=== PATIENT | female | born 1960 | race Caucasian/White ===

== ENCOUNTER 2019-04-15 20:17 | Observation (INO) ==
--- NOTE | 2019-04-15 20:39 | ERNOTE ---
Chest Pain/Cardiac HPI Date of Service: 04/15/19 Chief Complaint: Chest Pain Time Seen by Provider: 04/15/19 20:31 Source: patient Exam Limitations: no limitations Immunizations: IMMUNIZATION HX Immunizations Up to Date Yes History of Influenza Vaccine No Hx Pneumococcal Vaccination No Allergies/Adverse Reactions: Allergies No Known Allergies Allergy (Unverified 04/15/19 20:33) Home Medications: HOME MEDICATIONS NK 04/15/19 [Last Taken Unknown] Pain Score #1 Pain Score: 10 Narrative: 58-year-old female complaining of generalized chest pain began 2 days ago she had a very stressful day she was taking care of 1 7 grandchildren and another set was taken away from her son and they had tried to get them back with no success pain began yesterday it hurts to breathe hurts to move it it goes across the whole chest but particularly more so on the right side she has no heart history but she has a history of severe anxiety and COPD she still smokes half a pack to pack a day prior to these last few days she has had Date (Duration): 04/15/19 Time (Timing): 20:37 Timing: constant Severity/Quality: severe Location: central Chest Pain Radiation: no radiation Activities at Onset: emotional stress Nitro Today/Relief: no nitro taken today Aspirin Treatment Today: no aspirin today Associated Symptoms: Present: denies symptoms Prior Chest Pain/Cardiac Workup: Reports: no prior cardiac workup Review of Systems - Review of Systems Constitutional: Present: no symptoms reported EYE: Present: no symptoms reported ENT: Present: no symptoms reported Respiratory: Present: no symptoms reported Cardiology: Present: no symptoms reported, chest pain Gastrointestinal/Abdominal: Present: no symptoms reported Genitourinary: Present: no symptoms reported Musculoskeletal: Present: no symptoms reported Skin: Present: no symptoms reported Neurological: Present: no symptoms reported Endocrine: Present: no symptoms reported Hematologic/Lymphatic: Present: no symptoms reported Psych: Present: no symptoms reported All Other Systems: All systems neg except as marked Medical History (Updated 04/15/19 @ 22:37 by Ashu Grant MD) Anxiety Surgical History: Surgical History (Updated 04/15/19 @ 20:31 by Elizabeth Devlin RN) No pertinent past surgical history Family History: Family History (Updated 04/15/19 @ 20:31 by Elizabeth Devlin RN) Mother Lung cancer Father Prostate cancer Social History: (Last Updated 04/15/19 @ 20:33 by Elizabeth Devlin RN) Social History: lives independently: No household members: children caregiver/support person: Yes current occupational status: employed current occupational exposures/hazards: Yes 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 Highest education level completed: 12th grade, no diploma Tobacco: Smoking Status: Current every day smoker Smoking cigarettes per day: 10 Years smoked: 44 Alcohol: alcohol intake: never Substance Use: substance use type: does not use Pets: pets and animals: cat(s), dog(s) Exercise: Physical activity type: none Monique/Jain: special monique needs: No Physical Exam - Physical Exam General Appearance: Present: wd/wn, alert, moderate distress Head Exam: Present: normal inspection Eye Exam: Normal inspection: bilateral Ears, Nose, Throat: Present: normal ENT inspection Neck: Present: normal inspection Respiratory: Present: chest nontender, chest tenderness, respiratory distress, wheezing Cardiovascular/Chest: Present: regular rate, rhythm Peripheral Pulses: N=norm/S=strong/W=weak/B=bound/A=absent: Carotid (R): Normal, Carotid (L): Normal Gastrointestinal/Abdominal: Present: normal bowel sounds Back Exam: Present: normal inspection Extremity Exam: Present: normal inspection Neurological Exam: Present: alert, oriented Skin Exam: Present: normal color, warm/dry Lymphatic Exam: Present: no adenopathy Progress - Results and Orders Patient's Lab Results:: I have reviewed the patient's lab results. - Vital Signs Patient's Vital Signs:: I have reviewed the patient's vital signs. Vital Signs: Vital Signs 04/15/19 20:21 Temperature 37.1 C Pulse Rate 85 Respiratory Rate 16 Blood Pressure 107/63 O2 Sat by Pulse Oximetry 94 - EKG EKG #1 EKG: NSR, no ST T wave changes EKG read: Interp. by me EKG #2 EKG: premature ventricular contraction EKG read: Interp. by me EKG Comments: Heart rate 81 left atrial enlargement borderline ECG we have no priors to compare the patient with her initial EKG was just a sinus rhythm at 85 at times on monitor we can see her having runs of bigeminy her O2 sat is fine after the treatment she is feeling better breathing easier sats at 99% chest pain has gotten somewhat better her blood pressure remains slightly low low systolic 101 107 so on the little cautious about using nitroglycerin on her right now so the Toradol seemed to help a little bit and she seems to be more comfortable however she does show a white count of 21,000 and chest x-ray suspicious for right lower lobe infiltrate EKG #3 EKG: NSR, premature ventricular contraction EKG read: Interp. by me EKG Comments: EKG shows a heart rate is 79 sinus rhythm with frequent PVCs again 3B's of bigeminy possible right axis deviation left atrial enlargement no acute changes at the moment - X-Ray X-Ray #1 X-Ray: chest Interpretation: Interp. by me X-ray Comments: Right lower lobe infiltrate - Progress/Reassessment Chief Complaint: Chest Pain Progress:: Improved Plan - Plan Plan: Lab results are back white count is 21,000 troponin levels are normal everything else is within acceptable normal range considering the pain in the right side of the chest cough productive cough elevated white count feel we are dealing more with a pneumonia chest x-ray seems there is an infiltrate in the right lower lobe so we will be treating her as a has a pneumonia for the time being Dr. Saravanan Coe on-call physician accepted patient for admitting to telemetry Departure Clinical Impression: Pneumonia, Chest pain made worse by breathing, Asymptomatic PVCs - Departure Disposition: Short Term Hospital Inpatient Condition: Stable
[2019-04-15] MEDS ORDERED: NORMAL SALINE 1,000 ML IV ONE (20:40)
[2019-04-15] MEDS ORDERED: ASPIRIN 81 MG TAB.CHEW PO ONE (20:41)
[2019-04-15] MEDS ORDERED: ALBUTEROL SULFATE/IPRATROPIUM 3 ML NEBU IH ONE (20:42)
[2019-04-15] MEDS ORDERED: KETOROLAC TROMETHAMINE 30 MG/ML VIAL IV ONE ×2 (20:42→22:37)
[2019-04-15 20:57] LABS: Hematocrit 41.5 % (37.0-47.0); Hemoglobin 14.5 gm/dL (12.5-16.0); Mean Cell Volume 84.9 fl (78-100); Mean Corpuscular Hemoglobin 29.7 pg (27-31); Mean Corpuscular Hgb Conc 34.9 g/dl (32-36); Neutrophil # 17.7 K/mm3 (1.3-6.0); Neutrophil % 83.9 % (42-75.0); Platelet Count 191 K/mm3 (150-450); Red Blood Count 4.89 M/mm3 (4.2-5.4); Red Cell Distribution Width 13.6 % (11.5-14.0); White Blood Count 21.1 K/mm3 (4.0-10.5)
[2019-04-15 21:15] LABS: ALT 10 U/L (19-67); AST 24 U/L (0-48); Albumin * 3.3 gm/dl (3.4-5.0); Alkaline Phosphatase * 89 U/L (50-170); Anion Gap 15.5 mmol/L (6.8-13.8); BUN/Creatinine Ratio 17.2 (9.0-21.6); Bilirubin, Total 1.4 mg/dL (0.0-1.1); Blood Urea Nitrogen 11 mg/dL (3-23); Ca. Corrected For Albumin 8.3 mg/dL (8.4-10.2); Calcium * 8.1 mg/dL (7.9-10.9); Carbon Dioxide 24.2 mmol/L (24-32.6); Chloride 98 mmol/L (97-106); Glucose * 100 mg/dL (70-110); Potassium 3.7 mmol/L (3.4-4.6); Sodium 134 mmol/L (132-142); Total Protein 6.8 gm/dL (6.2-8.2); Troponin I Less than 0.017 ng/mL (0.00-0.10)
[2019-04-15] MEDS ORDERED: cefTRIAXone SODIUM 1,000 MG/100 ML BAG IV ONE (21:24)
[2019-04-15] MEDS ORDERED: MORPHINE SULFATE 4 MG/ML SYRG IV ONE (21:25)
[2019-04-15] MEDS ORDERED: ACETAMINOPHEN 325 MG TABLET PO PRN (22:37)
[2019-04-15] MEDS ORDERED: NORMAL SALINE 1,000 ML IV PRN (22:37)
[2019-04-15] MEDS ORDERED: AZITHROMYCIN 250 MG TABLET PO STA (22:37)
[2019-04-16] MEDS: ALBUTEROL SULFATE/IPRATROPIUM 3 ML NEBU IH SCH ×3 (00:57→13:15)
[2019-04-16] MEDS ORDERED: ALBUTEROL SULFATE 2.5 MG/0.5 ML VIAL.NEB IH PRN (09:45)
[2019-04-16] MEDS ORDERED: GLYCOPYRROLATE INH SCH (10:00)
[2019-04-16] MEDS ORDERED: FORMOTEROL FUM INH SCH (10:00)
[2019-04-16] MEDS ORDERED: CEFUROXIME AXETIL 500 MG TABLET PO SCH (10:00)
[2019-04-16] MEDS ORDERED: FLUoxetine HCL 10 MG CAPSULE PO SCH (10:00)
[2019-04-16 11:41] LABS: Hematocrit 36.9 % (37.0-47.0); Hemoglobin 12.5 gm/dL (12.5-16.0); Mean Cell Volume 86.4 fl (78-100); Mean Corpuscular Hemoglobin 29.3 pg (27-31); Mean Corpuscular Hgb Conc 33.9 g/dl (32-36); Mean Platelet Volume 9.8 fl (8-12.5); Neutrophil # 7.8 K/mm3 (1.3-6.0); Neutrophil % 77.9 % (42-75.0); Platelet Count 159 K/mm3 (150-450); Red Blood Count 4.27 M/mm3 (4.2-5.4); Red Cell Distribution Width 13.9 % (11.5-14.0)
--- NOTE | 2019-04-16 11:55 | HPDIS ---
Chief Complaint - Chief Complaint Date of Service: 04/16/19 Time of Service: 09:15 Chief Complaint: Chest pain, cough, cardiac dysrhythmia, pneumonia History of Present Illness: Miranda Will is a 58-year-old female patient he usually doctors in [place] who presented to our ER with chest pain cough shortness of breath and wheezing. On evaluation in the emergency room she was found to have frequent ventricular ectopy. The troponin was normal. The chest x-ray shows a right middle lobe pneumonia adjacent to the heart. She has been afebrile and vital signs are otherwise normal. She has not had any heart problems in the past. Her risk factors for coronary disease include smoking since age 14 and a proximate [id number] history. She is unaware of any family members who have had coronary disease. She denies hypertension diabetes or hyperlipidemia. She does have a loose bronchitic cough. Cultures were not drawn in the emergency room as far as I can tell so I have ordered in this morning. She was started empirically on Rocephin and azithromycin and admitted for observation. This morning her EKG shows normal sinus rhythm without ectopy. Auscultation of the chest shows adventitious rhonchi particularly in the right lung with some expiratory wheezes and a loose bronchitic cough. The abdomen is soft and nontender and without mass. Extremities are unremarkable without edema. Pedal and radial pulses are normal. She is feeling some better this morning and no longer having the chest pain that she had on admission. Lab: White count was 21,000 with 87% granulocytes but without bandemia. I am repeating the CBC 12 hours after the last one. She seems to be tolerating antibiotics well without difficulty. Her disposition is improved and her prognosis is fair and she will be discharged home after lunch today. Medical History (Updated 04/15/19 @ 23:35 by Sandi Avila RN) Anxiety Bursitis r.elbow COPD (chronic obstructive pulmonary disease) Carpal tunnel syndrome of left wrist Carpal tunnel syndrome of right wrist Psoriasis Surgical History: Surgical History (Updated 04/16/19 @ 00:33 by Sandi Avila RN) H/O tubal ligation Hx of dilation and curettage Family History: Family History (Updated 04/15/19 @ 20:31 by Elizabeth Devlin RN) Mother Lung cancer Father Prostate cancer Social History: (Last Updated 04/16/19 @ 00:14 by Sandi Avila RN) Social History: lives independently: No household members: children caregiver/support person: Yes current occupational status: employed current occupational exposures/hazards: Yes 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 Absent: Edema, Syncope Abdominal: Present: No Symptoms Reported Genitourinary: Present: No Symptoms Reported Musculoskeletal: Present: No Symptoms Reported Neurological: Present: No Symptoms Reported Skin: Present: No Symptoms Reported Endocrine: Present: No Symptoms Reported Misc: All systems neg except as marked Immunizations: IMMUNIZATION HX Immunizations Up to Date Yes History of Influenza Vaccine No Hx Pneumococcal Vaccination No Allergies/Adverse Reactions: Allergies Allergy/AdvReac Type Severity Reaction Status Date / Time No Known Allergies Allergy Verified 04/16/19 07:26 Home Medications: HOME MEDICATIONS Buspirone HCl 15 mg PO TID 04/15/19 [Last Taken 04/14/19 21:00] FLUoxetine HCL [Prozac] 10 mg PO DAILY 04/15/19 [Last Taken 04/14/19 08:00] Acetaminophen [Tylenol] 650 mg PO Q4H PRN tablet 04/16/19 [Last Taken Unknown] Albuterol Sulfate [Proair Hfa] 1 - 2 puff INHALATION Q4H PRN 04/16/19 [Last Taken Unknown] Albuterol Sulfate [Ventolin HFA] 18 gm INHALATION BID #1 inhaler 04/16/19 [Last Taken Unknown] Azithromycin 250 mg PO DAILY #3 tab 04/16/19 [Last Taken Unknown] Budesonide/Formoterol Fumarate [Symbicort 160-4.5 Mcg Inhaler] 2 puff INHALATION BID #1 inhaler 04/16/19 [Last Taken Unknown] Cefuroxime Axetil [Ceftin] 500 mg PO Q12H #20 tablet 04/16/19 [Last Taken Unknown] Glycopyrrolate/Formoterol Fum 2 puff INH BID 04/16/19 [Last Taken 04/14/19 21:00] Tiotropium Bolton [Spiriva] 1 cap IH DAILY@0700 #30 inhaler 04/16/19 [Last Taken Unknown] guaiFENesin [Mucinex] 600 mg PO BID #60 tablet.sa 04/16/19 [Last Taken Unknown] Exam - Exam Vital Signs: Vital Signs - Last Taken Temp 36.8 C 04/16/19 06:26 Pulse 66 04/16/19 06:26 Resp 16 04/16/19 06:26 BP 99/47 04/16/19 06:26 Pulse Ox 98 04/16/19 06:26 Constitutional: Present: Alert, Oriented x3, Cooperative, Well developed, Well nourished, No distress Eye Exam: bilateral eye: normal inspection, PERRL, EOMI Neck: Present: non-tender, full range of motion, supple, normal inspection Back Exam: Present: normal inspection, no CVA tenderness Breasts: Present: Exam deferred Respiratory: Present: chest non-tender, rhonchi, wheezing, expiration (prolonged) Cardiovascular/Chest: Present: normal peripheral pulses, regular rate, rhythm, no chest tenderness, no edema, no gallop, no JVD, no murmur, no rub Peripheral Pulses: carotid (R): 2+, carotid (L): 2+, radial (R): 2+, radial (L): 2+ Abdomen: Present: Normal bowel sounds, soft, nontender, nondistended, no rebound tenderness, no hepatospenomegaly, no masses /Rectal: Present: Exam deferred Extremity: Present: normal range of motion, non-tender Skin Exam: Present: normal color, warm/dry, no cyanosis Neurologic: Present: 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 II-XII nml as tested, normal cerebellar test, no motor/sensory deficits, alert, normal mood/affect, oriented x 3 Appearance: Present: appropriate appearance, appropriate insight, neat, no memory impairment Eye contact: Present: cooperative, good eye contact, normal speech, avoids eye contact Thoughts: Present: normal thought pattern, no apparent hallucination Diagnostic Studies: Abnormal Lab Results 04/15/19 04/15/19 04/15/19 Range/Units 20:45 20:45 22:10 WBC 21.1 H (4.0-10.5) K/mm3 Hct (37.0-47.0) % Immature Gran % (Auto) 0.60 H (0.001-0.429) % Immature Gran # (Auto) 0.13 H (0.000-0.0310) K/mm3 Neutrophils % 83.9 H (42-75.0) % Lymphocytes % 10.8 L (20-51) % Neutrophils # 17.7 H (1.3-6.0) K/mm3 pCO2 30.5 L (32.0-45.0) mmHg pO2 80.1 L (83.0-108.0) mmHg ABG pH 7.47 H (7.35-7.45) Anion Gap 15.5 H (6.8-13.8) mmol/L Calcium Adj for Albumin 8.3 L (8.4-10.2) mg/dL Total Bilirubin 1.4 H (0.0-1.1) mg/dL ALT 10 L (19-67) U/L C-Reactive Prot, Quant (0.0-0.9) mg/dL Albumin 3.3 L (3.4-5.0) gm/dl 04/16/19 04/16/19 Range/Units 10:45 10:45 WBC (4.0-10.5) K/mm3 Hct 36.9 L (37.0-47.0) % Immature Gran % (Auto) 0.50 H (0.001-0.429) % Immature Gran # (Auto) 0.05 H (0.000-0.0310) K/mm3 Neutrophils % 77.9 H (42-75.0) % Lymphocytes % 16.3 L (20-51) % Neutrophils # 7.8 H (1.3-6.0) K/mm3 pCO2 (32.0-45.0) mmHg pO2 (83.0-108.0) mmHg ABG pH (7.35-7.45) Anion Gap (6.8-13.8) mmol/L Calcium Adj for Albumin (8.4-10.2) mg/dL Total Bilirubin (0.0-1.1) mg/dL ALT (19-67) U/L C-Reactive Prot, Quant 14.8 H (0.0-0.9) mg/dL Albumin (3.4-5.0) gm/dl Laboratory Results WBC 10.0 K/mm3 (4.0-10.5) D 04/16/19 10:45 RBC 4.27 M/mm3 (4.2-5.4) 04/16/19 10:45 Hgb 12.5 gm/dL (12.5-16.0) 04/16/19 10:45 Hct 36.9 % (37.0-47.0) L 04/16/19 10:45 MCV 86.4 fl (78-100) 04/16/19 10:45 MCH 29.3 pg (27-31) 04/16/19 10:45 MCHC 33.9 g/dl (32-36) 04/16/19 10:45 RDW 13.9 % (11.5-14.0) 04/16/19 10:45 Plt Count 159 K/mm3 (150-450) 04/16/19 10:45 MPV 9.8 fl (8-12.5) 04/16/19 10:45 Immature Gran % (Auto) 0.50 % (0.001-0.429) H 04/16/19 10:45 Immature Gran # (Auto) 0.05 K/mm3 (0.000-0.0310) H 04/16/19 10:45 77.9 % (42-75.0) H 04/16/19 10:45 16.3 % (20-51) L 04/16/19 10:45 3.8 % (0.0-9) 04/16/19 10:45 1.1 % (0.0-3.0) 04/16/19 10:45 0.4 % (0.0-1.0) 04/16/19 10:45 Nucleated RBC % 0.0 k/mm3 (0-1) 04/16/19 10:45 7.8 K/mm3 (1.3-6.0) H 04/16/19 10:45 1.63 k/mm3 (1.5-3.5) 04/16/19 10:45 0.4 k/mm3 (0.0-1.0) 04/16/19 10:45 0.1 k/mm3 (0.0-0.7) 04/16/19 10:45 Absolute Basophils 0.0 k/mm3 (0.0-0.1) 04/16/19 10:45 pCO2 30.5 mmHg (32.0-45.0) L 04/15/19 22:10 pO2 80.1 mmHg (83.0-108.0) L 04/15/19 22:10 HCO3 21.9 mmol/L (21.0-28.0) 04/15/19 22:10 Total CO2 22.8 mmol/L (19.0-24.0) 04/15/19 22:10 Base Excess -0.7 mmol/L (-2.0-3.0) 04/15/19 22:10 ABG pH 7.47 (7.35-7.45) H 04/15/19 22:10 ABG O2 Sat (Measured) 96.6 % (94.0-98.0) 04/15/19 22:10 Sodium 134 mmol/L (132-142) 04/15/19 20:45 134 mmol/L (130-142) 04/15/19 20:45 Potassium 3.7 mmol/L (3.4-4.6) 04/15/19 20:45 Chloride 98 mmol/L (97-106) 04/15/19 20:45 Carbon Dioxide 24.2 mmol/L (24-32.6) 04/15/19 20:45 15.5 mmol/L (6.8-13.8) H 04/15/19 20:45 BUN 11 mg/dL (3-23) 04/15/19 20:45 0.64 mg/dL (0.4-1.4) 04/15/19 20:45 Est GFR (Non-Af Amer) 101 mL/min (60-130) 04/15/19 20:45 17.2 (9.0-21.6) 04/15/19 20:45 100 mg/dL (70-110) 04/15/19 20:45 Calcium 8.1 mg/dL (7.9-10.9) 04/15/19 20:45 Calcium Adj for Albumin 8.3 mg/dL (8.4-10.2) L 04/15/19 20:45 1.4 mg/dL (0.0-1.1) H 04/15/19 20:45 AST 24 U/L (0-48) 04/15/19 20:45 ALT 10 U/L (19-67) L 04/15/19 20:45 89 U/L (50-170) 04/15/19 20:45 Less than 0.017 ng/mL (0.00-0.10) 04/16/19 05:50 C-Reactive Prot, Quant 14.8 mg/dL (0.0-0.9) H 04/16/19 10:45 6.8 gm/dL (6.2-8.2) 04/15/19 20:45 3.3 gm/dl (3.4-5.0) L 04/15/19 20:45 Assessment/Plan - Narrative Narrative: Miranda will be discharged home. She will be on Ceftin and azithromycin to finish her antibiotic course. She will continue her other current chronic medicines. She should see her primary care physician within the next 2 weeks for follow-up. It is a doctor in [place]. She is wanting to establish a physician here in [place]. I would see her but I am going to be out of tow n during the timeframe she needs to be re-seen. Her repeat white count is down to 10,000 this morning. - Assessment/Plan (1) Acute exacerbation of COPD with asthma Problem: Acute (2) Current every day smoker Problem: Acute (3) Pneumonia Problem: Acute Qualifiers: Pneumonia type: due to unspecified organism Laterality: right Lung location: middle lobe of lung Qualified Code(s): J18.1 - Lobar pneumonia, unspecified organism (4) Chest pain made worse by breathing Problem: Resolved (5) Asymptomatic PVCs Problem: Acute (1) Acute exacerbation of COPD with asthma Problem: Acute (2) Current every day smoker Problem: Acute (3) Pneumonia Problem: Acute (4) Chest pain made worse by breathing Problem: Acute (5) Asymptomatic PVCs Problem: Acute Date of Discharge:: 04/16/19 Description of Stay: Miranda was admitted for pneumonia and cardiac dysrhythmia. She has been receiving respiratory therapy treatments and IV Rocephin and p.o. azithromycin. She is feeling a lot better than this morning and her chest pain is gone. She continues to have adventitious rhonchi with expiratory wheezes particularly in the right middle lobe area. Chest x-ray did show a right middle lobe pneumonia adjacent to the heart. EKGs and troponins were otherwise unremarkable. Her only risk factor for coronary disease is her smoking. She is up and ambulatory and able to care for herself and she will be discharged to home. Procedures Performed: none Results and Findings: Lab Pending Results 04/15/19 20:45: WBC 21.1 H, RBC 4.89, Hgb 14.5, Hct 41.5, MCV 84.9, MCH 29.7, MCHC 34.9, RDW 13.6, Plt Count 191, MPV 9.0, Immature Gran % (Auto) 0.60 H, Immature Gran # (Auto) 0.13 H, Neutrophils % 83.9 H, Lymphocytes % 10.8 L, Monocytes % 4.2, Eosinophils % 0.2, Basophils % 0.3, Nucleated RBC % 0.0, Neutrophils # 17.7 H, Lymphocytes # 2.27, Monocytes # 0.9, Eosinophils # 0.0, Absolute Basophils 0.1 04/15/19 20:45: Sodium 134, Plasma Sodium 134, Potassium 3.7, Chloride 98, Carbon Dioxide 24.2, Anion Gap 15.5 H, BUN 11, Creatinine 0.64, Est GFR (Non-Af Amer) 101, BUN/Creatinine Ratio 17.2, Random Glucose 100, Calcium 8.1, Calcium Adj for Albumin 8.3 L, Total Bilirubin 1.4 H, AST 24, ALT 10 L, Alkaline Phosphatase 89, Troponin I Less than 0.017, Total Protein 6.8, Albumin 3.3 L 04/15/19 22:10: pCO2 30.5 L, pO2 80.1 L, HCO3 21.9, Total CO2 22.8, Base Excess -0.7, ABG pH 7.47 H, ABG O2 Sat (Measured) 96.6 04/16/19 05:50: Troponin I Less than 0.017 04/16/19 10:45: C-Reactive Prot, Quant 14.8 H 04/16/19 10:45: WBC 10.0 D, RBC 4.27, Hgb 12.5, Hct 36.9 L, MCV 86.4, MCH 29.3, MCHC 33.9, RDW 13.9, Plt Count 159, MPV 9.8, Immature Gran % (Auto) 0.50 H, Immature Gran # (Auto) 0.05 H, Neutrophils % 77.9 H, Lymphocytes % 16.3 L, Monocytes % 3.8, Eosinophils % 1.1, Basophils % 0.4, Nucleated RBC % 0.0, Neutrophils # 7.8 H, Lymphocytes # 1.63, Monocytes # 0.4, Eosinophils # 0.1, Absolute Basophils 0.0 Discharge Location: Home Disposition: Home self-care Condition: Stable Discharge Activity: Activity as tolerated Discharge Diet: General/regular food Problem Oriented Discharge Instructions to Patient/Family: Smoking Cessation, Tips for Success, [id number] Additional Patient Instructions (free text): See primary care physician within the next 2 weeks Complete Home Medications List: Complete Home Medication List: Buspirone HCl 15 mg PO TID 04/15/19 FLUoxetine HCL [Prozac] 10 mg PO DAILY 04/15/19 Acetaminophen [Tylenol] 650 mg PO Q4H PRN tablet 04/16/19 Albuterol Sulfate [Proair Hfa] 1 - 2 puff INHALATION Q4H PRN 04/16/19 Albuterol Sulfate [Ventolin HFA] 18 gm INHALATION BID #1 inhaler 04/16/19 Azithromycin 250 mg PO DAILY #3 tab 04/16/19 Budesonide/Formoterol Fumarate [Symbicort 160-4.5 Mcg Inhaler] 2 puff INHALATION BID #1 inhaler 04/16/19 Cefuroxime Axetil [Ceftin] 500 mg PO Q12H #20 tablet 04/16/19 Glycopyrrolate/Formoterol Fum 2 puff INH BID 04/16/19 Tiotropium Bolton [Spiriva] 1 cap IH DAILY@0700 #30 inhaler 04/16/19 guaiFENesin [Mucinex] 600 mg PO BID #60 tablet.sa 04/16/19
[2019-04-16] MEDS ORDERED: busPIRone HCL 5 MG TABLET PO SCH (13:00)
[2019-04-16 13:09] VITALS: BP 143/50
[2019-04-16] MEDS ORDERED: FORMOTEROL FUMARATE 20 MCG/2 ML VIAL IH SCH (19:00)
[2019-04-17] MEDS ORDERED: TIOTROPIUM BROMIDE 5 CAP INHALER IH SCH (07:00)
== END 2019-04-16 13:32 | disposition home or self-care (01) ==
LOC: ER 20:17 → MS 20:17
PROVIDERS: ADMIT Family Medicine; ATTEND Family Medicine
CPT/HCPCS: 36415; 36600; 71010; 71020; 71045; 71046; 80053; 82803; 84484; 85025; 86140; 87040; 87077; 87186; 93005; 94640; 94664; 96361; 96365; 96375; 99285; G0378